=== PATIENT | female | born 1975 | race Caucasian/White ===

== ENCOUNTER 2018-04-11 06:22 | Day surgery (SDC) | payer OTHER ==
--- NOTE | 2018-04-02 15:40 | HP ---
PREOPERATIVE HISTORY AND PHYSICAL: DATE OF SURGERY/ADMISSION: 04/11/18 [facility] DATE OF OFFICE VISIT/ENCOUNTER: 04/02/18 ATTENDING SURGEON: Lamar Guthrie MD.* (DICTATED BY AYANA RODRIGUEZ) PROCEDURE: Left wrist excision of mass. CHIEF COMPLAINT: Mass, left wrist. HISTORY OF PRESENT ILLNESS: This is a 42-year-old female. 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. She has had pain and lump in her left wrist that has been ongoing for close to 2 months. She denies any injury to the wrist. She feels marked pain on the volar ulnar aspect of the wrist especially when she applied pressure or when she extends her wrist. Even regulatory services consultant activity such as holding a book is very painful. This is her dominant hand. She occasionally gets a tingling sensation into her ulnar to fingers, but that is not present all the time. An MRI of the left wrist shows a ganglion cyst at the volar radial aspect; however, this is not in area of her pain and she does definitely have a tender mass at the ulnar aspect of the wrist , which is likely tenosynovitis compressing the ulnar nerve. The patient is interested in having the mass removed and has consented to proceed with surgical intervention at this time. PAST MEDICAL HISTORY: Unremarkable. PAST SURGICAL HISTORY: 1. Left shoulder rotator cuff repair. 2. Right knee arthroscopy. CURRENT MEDICATIONS: None. ALLERGIES: No known drug allergies. FAMILY MEDICAL HISTORY: Hypertension and cancer. SOCIAL HISTORY: The patient is employed at [employer] as a clinical genetics laboratory chief. She is also going to school in [place]. She denies tobacco use and recreational drug use. She does drink alcohol on regular occasion. REVIEW OF SYSTEMS: General: Negative for fevers, chills, or night sweats. No known anesthesia problems. Negative for unexplained weight loss or gain. HEENT : Negative for headache, lightheadedness, syncopal episodes, or visual changes. Integumentary: Negative for abrasions, lesions, or open wounds. Cardiothoracic : Negative for hypertension, chest pain, palpitations, or edema. Respiratory: Negative for shortness of breath with exertion, chronic cough, or wheezing. GI : Negative for nausea, vomiting, diarrhea, constipation, or GERD. : Negative for nocturia, urinary frequency, urgency, history of UTIs, or kidney problems. Musculoskeletal: Positive for current complaint. Neurologic: Negative for paresthesias, numbness, history of seizure, stroke, or poor balance. Endocrine: Negative for diabetes or thyroid issues. Hematologic: Negative for easy bruising, anemia, bleeding disorders, or history of DVT. Infectious Disease: Negative for history of MRSA, hepatitis C, or HIV. PHYSICAL EXAMINATION GENERAL: Well-developed, well-nourished 42-year-old female in no acute distress. VITAL SIGNS: Height is 5 feet 7 inches, weight 302 pounds. Blood pressure 130/ 72, pulse rate 95. HEENT: Normocephalic, atraumatic. Pupils are equal, round, and reactive to light and accommodation. Extraocular movements are intact. Throat is clear. NECK: Supple. No palpable lymph nodes. PULMONARY: Lungs are clear to auscultation bilaterally. No wheezes, rales, or rhonchi. CARDIOVASCULAR: Regular rate and rhythm. S1 and S2. No murmurs, rubs, or gallops. No edema. ABDOMEN: Positive bowel sounds, soft, nontender. NEUROLOGIC: Alert and oriented x3. Cranial nerves II through XII are intact. Sensation is intact to light touch. MUSCULOSKELETAL: On exam of her left wrist, there is some mild swelling on the volar ulnar aspect of the wrist. It is markedly tender to palpation just ulnar to the flexor carpi ulnaris. She has a positive Tinel's sign. She has no pain resisting wrist flexion, but significant pain with passive wrist extension especially when bearing weight in that position. She has full motion on her fingers and neurovascular function is intact. IMAGING STUDIES: X-rays AP, lateral, and oblique of the left wrist appear normal. MRI of the left wrist shows a volar radial wrist ganglion. IMPRESSION: Left wrist volar radial ganglion, likely tenosynovitis at the volar ulnar aspect. PLAN: The patient is scheduled to undergo a left wrist excision mass with Dr. Guthrie on 04/11/18. She will return to the office in 10 days postop for followup and suture removal. Prescription for Ultracet was e-scribed to the patient's pharmacy for postoperative pain management. AYANA RODRIGUEZ [id number]/[facility] #: [id number] VALENTIN
[~2018-04-11 06:22] MED LIST: Buffered Lidocaine 0.9% SYRIN* 5 ML/SYR SYRINGE INTRADERM ONE; Sodium Citrate/Citric Acid* 15 ML UDC PO ONE
[2018-04-11] MEDS ORDERED: Sodium Citrate/Citric Acid* 15 ML UDC ONE (06:59)
[2018-04-11] MEDS ORDERED: Buffered Lidocaine 0.9% SYRIN* 5 ML/SYR SYRINGE ONE (06:59)
[2018-04-11] MEDS ORDERED: Lidocaine 1% INJ* 10 MG/ML 30 ML SDV ONE (07:08)
[2018-04-11] MEDS ORDERED: Midazolam* 1 MG/ML 2 ML VIAL (2 MG) ONE (07:26)
[2018-04-11] MEDS ORDERED: fentaNYL* 50 MCG/ML 2 ML VIAL (100 MCG VIAL) ONE (07:26)
[2018-04-11] MEDS ORDERED: Lidocaine 2% PF * 5 ML VIAL ONE (07:39)
[2018-04-11] MEDS ORDERED: Propofol* 10 MG/ML 20 ML BTL IV PUSH ONE (07:45)
[2018-04-11] MEDS ORDERED: Naloxone* 0.4 MG/ML 1 ML VIAL IV PRN (08:18)
[2018-04-11 08:37] VITALS: BP 124/84
--- NOTE | 2018-04-12 00:36 | OP ---
DATE OF OPERATION: 04/11/18 - [facility] DATE OF : 71 SURGEON: Dr. Guthrie. ANESTHESIOLOGIST: AYANA Peterson ANESTHESIA: Local MAC. PRE-OP DIAGNOSIS: Left wrist mass. POST-OP DIAGNOSIS: Left wrist mass. OPERATIVE PROCEDURE: Removal of left wrist mass. ESTIMATED BLOOD LOSS: Zero. TOURNIQUET TIME: About 25 minutes. INDICATIONS FOR PROCEDURE: Dixie is a 42-year-old female with a painful mass on the ulnar aspect of her left wrist. She has symptoms of ulnar neuropathy as a result of it. She presents for left wrist mass excision. DESCRIPTION OF PROCEDURE: The patient was brought to the operating room, was given a sedation anesthetic and local infiltration of a total of 14 cc of 1% plain lidocaine and 5 cc of 2% plain lidocaine. Skin of her left upper extremity was prepped and draped in usual sterile fashion. The hand and forearm were exsanguinated and the tourniquet elevated to 250 mmHg. A Chevron incision was made centered over the mass, we dissected bluntly through the subcutaneous tissue. There appeared to be a lipoma superficial to the FCU tendon and this was removed. The FCU tendon was dissected out as were the ulnar nerve and ulnar artery. Deep to the ulnar nerve, there was some tenosynovitis of the flexor tendons and this was debrided. The nerve was intact. There was no mass in the nerve itself. The artery did not have an aneurysm. The nerve was completely decompressed and then the wound irrigated. Skin edges were reapproximated with 4-0 nylon suture. The wound was dressed with Xeroform, 4x4, Webril and an Mike wrap. The patient tolerated the procedure well and was brought to the recovery room in good condition. [id number]/[facility] #: [id number] MTDD
== END 2018-04-11 08:50 | disposition home or self-care (01) ==
LOC: OR 06:22
PROVIDERS: ATTEND Orthopaedic Surgery
DX: D17.79 Benign lipomatous neoplasm of other sites (principal)
CPT/HCPCS: 81025; 88304; A9270-GY; J2250; J2704; J3010

== ENCOUNTER 2019-08-25 10:49 | Inpatient (IN) | payer OTHER ==
[~2019-08-25 10:49] MED LIST changes: -Buffered Lidocaine 0.9% SYRIN* 5 ML/SYR SYRINGE INTRADERM ONE; +Buffered Lidocaine 1% SYRIN* 1 ML/SYRINGE INTRADERM ONE; +Famotidine IV* 10 MG/ML 2 ML (20 mg) IV ONE; +Lactated Ringers 1000 ML Bag* 1,000 ML IV SCH; -Sodium Citrate/Citric Acid* 15 ML UDC PO ONE
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
[2019-08-25] MEDS ORDERED: Ondansetron INJ* 2 MG/ML VIAL ONE ×2 (11:02→14:36)
[2019-08-25] MEDS ORDERED: Lidocaine 2% PF * 5 ML VIAL ONE (11:02)
[2019-08-25] MEDS ORDERED: Propofol* 10 MG/ML 20 ML BTL ONE (11:02)
[2019-08-25] MEDS ORDERED: fentaNYL* 50 MCG/ML 2 ML VIAL (100 MCG VIAL) ONE ×3 (11:02→14:46)
[2019-08-25] MEDS ORDERED: Dexamethasone IV* 4 MG/ML 1 ML (4 MG) ONE (11:02)
[2019-08-25] MEDS ORDERED: Rocuronium* 10 MG/ML VIAL ONE (11:03)
[2019-08-25] MEDS ORDERED: KETAMINE HCL* 50 MG/ML 10 ML VIAL ONE (11:03)
[2019-08-25] MEDS ORDERED: Midazolam* 1 MG/ML 5 ML VIAL (5 MG) ONE (11:03)
[2019-08-25] MEDS ORDERED: ceFAZolin 2 GM in NS PREMIX(*) 2 GM/100 ML BAG IVPB ONE (11:14)
[2019-08-25] MEDS ORDERED: ceFAZolin 1 GM ADVAN(*) 1 GM ADDV.VIAL IVPB ONE (11:14)
[2019-08-25] MEDS ORDERED: Heparin VIAL(*) 5000 UNITS/ML VIAL (FIVE THOUSAND) ONE (11:14)
[2019-08-25] MEDS ORDERED: Famotidine IV* 10 MG/ML 2 ML (20 mg) ONE (11:14)
[2019-08-25] MEDS ORDERED: Bupivacaine 0.25% EPI 200,000* 30 ML SDV ONE (12:06)
[2019-08-25] MEDS ORDERED: Ondansetron INJ* 2 MG/ML VIAL IV PRN (13:13)
[2019-08-25] MEDS ORDERED: Naloxone* 0.4 MG/ML 1 ML VIAL IV PRN (13:13)
[2019-08-25] MEDS ORDERED: Glycopyrrolate IV* 0.2 MG/ML 1 ML VIAL ONE (13:48)
[2019-08-25] MEDS ORDERED: diPHENhydraMINE IV* 50 MG/ML 1 ml VIAL (BENADRYL) SLOW PUSH PRN (14:19)
[2019-08-25] MEDS ORDERED: HYDROmorphone INJ1* 1 MG/ML SYRINGE IV SLOW PU PRN (14:24)
[2019-08-25] MEDS ORDERED: HYDROmorphone INJ* 0.5 MG/0.5 ML SYRINGE IV SLOW PU PRN (14:27)
[2019-08-25] MEDS ORDERED: HYDROmorphone INJ1* 1 MG/ML SYRINGE ONE (14:27)
[2019-08-25] MEDS: HYDROmorphone INJ1* 1 MG/ML SYRINGE IV PRN ×2 (14:28→14:41)
[2019-08-25] MEDS: fentaNYL* 50 MCG/ML 2 ML VIAL (100 MCG VIAL) IV PRN ×2 (14:46→15:19)
[2019-08-25] MEDS ORDERED: Ketorolac INJ* 30 MG/ML 1 ML VIAL IV SCH (15:00)
[2019-08-25] MEDS: Lactated Ringers 1000 ML Bag* 1,000 ML IV SCH ×2 (16:18→22:51)
[2019-08-25] MEDS: Famotidine IV* 10 MG/ML 2 ML (20 mg) IV SLOW PU SCH (20:32)
[2019-08-25] MEDS: Ketorolac INJ* 30 MG/ML 1 ML VIAL IV SCH (20:32)
[2019-08-25] MEDS: Ondansetron INJ* 2 MG/ML VIAL IV PRN (20:56)
--- NOTE | 2019-08-25 21:49 | OP ---
CC: [facility]; Dr. Bob Chaparro, [facility] * DATE OF OPERATION: 08/25/19 - ROOM #353 DATE OF : 71 SURGEON: Stas Lopez MD. DISTRICT SALES LEADER: Yany Johnson NP. ANESTHESIOLOGIST: Dr. Federico Chance. ANESTHESIA: General endotracheal. PRE-OP DIAGNOSES: Clinically severe obesity. POST-OP DIAGNOSES: Clinically severe obesity. OPERATIVE PROCEDURE: Laparoscopic sleeve gastrectomy. ESTIMATED BLOOD LOSS: Less than 10 mL. IV FLUIDS: Crystalloid. SPECIMEN: Portion of stomach. DRAINS: None. COMPLICATIONS: None. COUNTS: The instrument, needle, and sponge counts were correct. DESCRIPTION OF PROCEDURE: The patient was brought to the operative room and placed on the table supine. Sequential compression devices were placed on both lower extremities and general anesthesia was administered. The abdomen was prepped and draped in the usual sterile fashion. Time-out was performed. Local anesthetic was infiltrated into the skin and soft tissue prior to making each incision. Entry into the abdomen was through a left upper quadrant incision accommodating a 5-mm optical trocar. After accessing the peritoneal cavity, carbon dioxide was insufflated to a pressure of 15 mmHg. Under direct visualization, 12-mm bladeless trocars were placed in the right upper quadrant and supraumbilical midline. 5-mm trocars were placed in the left upper quadrant laterally. A Joyce liver retractor was placed percutaneously in the subxiphoid position and used to elevate the left lobe of the liver. Gastric anatomy was inspected and appeared to be normal. There were some adhesions of the omentum to the falciform ligament that were taken down. Pylorus was identified, and 6 cm proximal to this on the greater curvature, the stomach was skeletonized with the LigaSure. Division of the short gastrics was completed all the way to the gastroesophageal junction. A posterior short gastric vessel was divided as well. Once the stomach was fully mobilized, a sleeve gastrectomy was performed over a 40 Fijian bougie with serial firings of the EndoGIA stapler with purple cartridges with reinforcement. After completing the sleeve gastrectomy, the specimen was retrieved through the right upper quadrant incision using the endoscopic retrieval bag. The Joyce liver retractor was removed. The ports and carbon dioxide were removed. The incisions were closed with 4-0 Monocryl in subcuticular fashion. Steri-Strips were applied. The patient tolerated the procedure well. She was extubated and transferred to Recovery in stable condition. [id number]/[facility] #: [id number] [facility] HEALTHMarianne
[2019-08-25] MEDS: Heparin VIAL(*) 5000 UNITS/ML VIAL (FIVE THOUSAND) SUBCUT SCH (22:49)
[2019-08-26] MEDS: Ketorolac INJ* 30 MG/ML 1 ML VIAL IV SCH ×4 (03:01→20:30)
[2019-08-26] MEDS: Heparin VIAL(*) 5000 UNITS/ML VIAL (FIVE THOUSAND) SUBCUT SCH ×3 (05:36→22:05)
[2019-08-26] MEDS: Lactated Ringers 1000 ML Bag* 1,000 ML IV SCH ×2 (05:36→14:19)
[2019-08-26] MEDS: Ondansetron INJ* 2 MG/ML VIAL IV PRN ×3 (07:48→20:29)
[2019-08-26] MEDS: Famotidine IV* 10 MG/ML 2 ML (20 mg) IV SLOW PU SCH ×2 (08:30→20:27)
[2019-08-26] MEDS ORDERED: Influenza VAC *QUAD* 2019-20* 0.5 ML SYRINGE IM ONE (09:00)
--- NOTE | 2019-08-26 09:29 | PN ---
Progress Note - Progress Note Date of Service: 08/26/19 SOAP: Subjective: Pt Comfortable in bed, C/O Nausea and Vomiting earlier this morning x 2, responded well to Zofran without complaints at time of my exam. + Flatus + Voids[] Objective: Vital Signs Temp Pulse Resp BP Pulse Ox 98.3 F 95 14 143/87 100 08/26/19 08:00 08/26/19 08:00 08/26/19 08:00 08/26/19 08:00 08/26/19 08:00 PE: Chest: CTA B/L CVS: RRR ABD: Obese, Soft, hypoactive BS's Incisions C/D/I + incisional Tenderness Remaining abdominal exam non tender EXT: Calves soft B/L [] Assessment: 43 yo obese female S/P laparoscopic sleeve gastrectomy, post operative nausea/vomiting responds well to zofran [] Plan: Begin Bariatric clear diet, Insentive spirometry, encouraged deep breathing. ambulate Above D/W Dr Lopez []
[2019-08-26] MEDS ORDERED: Scopolamine 1.5 mg* PATCH TRANSDERM SCH (15:00)
[2019-08-26] MEDS: D5W 1/2 NS KCl 20 Meq 1000 ML* 1,000 ML IV SCH (17:21)
[2019-08-27] MEDS: D5W 1/2 NS KCl 20 Meq 1000 ML* 1,000 ML IV SCH ×2 (02:28→10:25)
[2019-08-27] MEDS: Ketorolac INJ* 30 MG/ML 1 ML VIAL IV SCH ×2 (02:28→08:32)
[2019-08-27] MEDS: Ondansetron INJ* 2 MG/ML VIAL IV PRN (02:34)
[2019-08-27] MEDS: Heparin VIAL(*) 5000 UNITS/ML VIAL (FIVE THOUSAND) SUBCUT SCH (05:55)
[2019-08-27] MEDS: Famotidine IV* 10 MG/ML 2 ML (20 mg) IV SLOW PU SCH (08:32)
[2019-08-27] MEDS ORDERED: Influenza VAC *QUAD* 2019-20* 0.5 ML SYRINGE IM ONE (09:00)
[2019-08-27 11:35] VITALS: BP 113/49
--- NOTE | 2019-08-27 12:15 | PN ---
Progress Note - Progress Note Date of Service: 08/27/19 SOAP: Subjective: Pt in NAD, feeling better. Tolerated elizabeth clears, + Flatus, no nausea[] Objective: Vital Signs Temp Pulse Resp BP Pulse Ox 97.8 F 78 18 113/49 99 08/27/19 11:34 08/27/19 11:34 08/27/19 11:34 08/27/19 11:34 08/27/19 11:34 Intake & Output 08/26/19 08/27/19 08/27/19 22:59 06:59 14:59 Intake Total 064 368 1211 Output Total 1500 800 400 Balance -1045 195 610 PEX: Chest: CTA B/L CVS: RRR ABD: Obese, Soft, Hypoactive BS's, incisions C/D/I steris in place EXT: Calves soft B/L, non tender[] Assessment: 43 yo female POD 2 S/P lap sleeve stable. Bowel function returning, tolerating elizabeth clears[] Plan: Continue ambulating, IS, SCD's, Elizabeth clear diet. If tolerates lunch, will D/C home this afternoon []
--- NOTE | 2019-08-27 21:30 | DS ---
DISCHARGE SUMMARY: DATE OF ADMISSION: 08/25/19 DATE OF DISCHARGE: 08/27/19 SURGEON: Dr. Stas Lopez.* (DICTATED BY AYANA GIL) DISCHARGE DIAGNOSIS: Morbid obesity. REASON FOR ADMISSION: Morbid obesity. HOSPITAL COURSE: The patient admitted on 08/25/19 for a laparoscopic sleeve gastrectomy. The patient tolerated the procedure well, transferred to the short - stay surgical unit for postoperative medical care. The patient was experiencing nausea on postop day 1 and was kept due to this. On postop day 2, 08/27/19, the patient has been tolerating bariatric clear liquid diet with no problem, had been given a scolamine patch. PHYSICAL EXAMINATION: The wounds were clean, dry, and intact. Chest was clear. The abdomen was soft with only some incisional tenderness. She is passing flatus. DISPOSITION: The patient was being discharged to home in stable condition on . DISCHARGE INSTRUCTIONS: Instructions were given regarding diet, medications, activity, and her followup appointment. All questions were answered. AYANA GIL [id number]/[facility] #: [id number] MTDD
[2019-08-29] MEDS ORDERED: Scopolamine PATCH Remove* 1 NOTE MISC PATCH OFF SCH (15:00)
== END 2019-08-27 13:45 | disposition home or self-care (01) | DRG 403 ==
LOC: AA 10:49 → SSU 16:05
PROVIDERS: ADMIT Surgery; ATTEND Surgery
PROC: 0DB64Z3 Excision of Stomach, Percutaneous Endoscopic Approach, Vertical (ICD-10-PCS; principal; 2019-08-25 12:15)
DX: E66.01 Morbid (severe) obesity due to excess calories (principal); K21.9 Gastro-esophageal reflux disease without esophagitis; G89.29 Other chronic pain; M54.2 Cervicalgia; R11.2 Nausea with vomiting, unspecified; F32.9 Major depressive disorder, single episode, unspecified; G43.909 Migraine, unspecified, not intractable, without status migrainosus; Z80.9 Family history of malignant neoplasm, unspecified; Z68.43 Body mass index [BMI] 50.0-59.9, adult; Z82.61 Family history of arthritis; Z82.62 Family history of osteoporosis; Z82.49 Family history of ischemic heart disease and other diseases of the circulatory system; Z72.89 Other problems related to lifestyle; Z23 Encounter for immunization
CPT/HCPCS: 43775; 81025; 88307; 90686; A9270-GY; J0690; J1100; J1170; J1644; J1885; J2250; J2405; J2704; J3010

== ENCOUNTER 2019-08-31 13:12 | Emergency (ER) | payer OTHER ==
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
[2019-08-31 14:35] LABS: ABS Basophils 0.1 10^3/ul (0-0.2); ABS Eosinophils 0.1 10^3/ul (0-0.6); ABS Lymphocytes 2.6 10^3/ul (1.0-4.8); ABS Monocytes 0.7 10^3/ul (0-0.8); ABS Neutrophils 5.7 10^3/ul (1.5-7.7); Eosinophil % 1.2 %; Hematocrit 37 % (35-47); Hemoglobin 12.3 g/dL (12.0-16.0); Lymphocyte % 28.4 %; Mean Corpuscular HGB Conc 33 g/dL (31-36); Mean Corpuscular Hemoglobin 28 pg (27-31); Mean Corpuscular Volume 85 fL (80-97); Mean Platelet Volume 8.3 fL (7.4-10.4); Nucleated Red Blood Cells % 0.1; Platelet Count 268 10^3/uL (150-450); Red Cell Distribution Width 14 % (10-15); White Blood Count 9.2 10^3/uL (3.5-10.8)
[2019-08-31 14:48] LABS: INR 1.14 (0.82-1.09)
[2019-08-31 14:53] LABS: Albumin/Globulin Ratio 1.1 (1-3); BUN/Creatinine Ratio 9.3 (8-20); C Reactive Protein 49.71 mg/L (<8.01); Calcium 9.4 mg/dL (8.6-10.3); EGFR African American 86.3 (>60); EGFR Non-African American 71.4 (>60); Globulin 3.8 g/dL (2-4); Potassium 3.5 mmol/L (3.5-5.0); Total Bilirubin 0.7 mg/dL (0.2-1.0); Total Protein 7.8 g/dL (6.4-8.9)
[2019-08-31 14:54] LABS: Troponin I 0.01 ng/mL (<0.04)
[2019-08-31] MEDS ORDERED: Iohexol 350* (CONTRAST) 500 ML MDV IV ONE (16:32)
[2019-08-31 18:44] VITALS: BP 122/75
== END 2019-08-31 18:53 | disposition home or self-care (01) ==
LOC: ED 13:12
DX: R14.0 Abdominal distension (gaseous) (principal); F41.9 Anxiety disorder, unspecified; F32.9 Major depressive disorder, single episode, unspecified; Z79.899 Other long term (current) drug therapy
CPT/HCPCS: 36415; 71046; 71275; 74176; 80053; 83605; 83880; 84484; 85025; 85610; 86140; 87040; 93005; 99283; Q9967

== ENCOUNTER 2019-09-11 15:42 | Observation (INO) | payer OTHER ==
[2019-09-11] MEDS ORDERED: Thiamine IV 100 MG, Folic Acid IV* 1 MG, Multiple Vitamin IV ADULT* 10 ML in D5NS 0.9% ... IV ONE (17:58)
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
[2019-09-11 18:40] LABS: ABS Basophils 0.1 10^3/ul (0-0.2); ABS Eosinophils 0.1 10^3/ul (0-0.6); ABS Lymphocytes 2.9 10^3/ul (1.0-4.8); ABS Monocytes 0.7 10^3/ul (0-0.8); ABS Neutrophils 5.6 10^3/ul (1.5-7.7); Eosinophil % 0.8 %; Hematocrit 39 % (35-47); Hemoglobin 12.8 g/dL (12.0-16.0); Lymphocyte % 30.7 %; Mean Corpuscular HGB Conc 33 g/dL (31-36); Mean Corpuscular Hemoglobin 28 pg (27-31); Mean Corpuscular Volume 85 fL (80-97); Mean Platelet Volume 8.2 fL (7.4-10.4); Nucleated Red Blood Cells % 0.2; Platelet Count 390 10^3/uL (150-450); Red Blood Count 4.57 10^6 /uL (3.70-4.87); Red Cell Distribution Width 14 % (10-15); White Blood Count 9.3 10^3/uL (3.5-10.8)
[2019-09-11 18:42] LABS: BUN/Creatinine Ratio 7.5 (8-20); Calcium 9.7 mg/dL (8.6-10.3); EGFR African American 78.9 (>60); EGFR Non-African American 65.2 (>60); Potassium 3.2 mmol/L (3.5-5.0)
[2019-09-11] MEDS ORDERED: Pantoprazole IV* 40 MG IV SCH (19:00)
[2019-09-11] MEDS ORDERED: Ondansetron INJ* 2 MG/ML VIAL IV PRN (20:25)
--- NOTE | 2019-09-11 20:59 | HP ---
CC: , [facility]; , [facility] * HISTORY AND PHYSICAL UPDATE: DATE OF ADMISSION: 09/11/19 ATTENDING SURGEON: Dr. Garrett Fuller.* (DICTATED BY AYANA SANZ) CHIEF COMPLAINT: Severe reflux. HISTORY OF PRESENT ILLNESS: This is a 43-year-old female who is 2 weeks and 3 days status post laparoscopic sleeve gastrectomy with Dr. Lopez. Her initial postoperative course was significant for nausea such that she stayed until postop day 2, after which time she was tolerating bariatric clear liquids well. She also had an ED visit on 08/31/19 for some shortness of breath. Her workup at that time was negative and she was released. She was seen by Dr. Lopez on 09/03/19 and had continued to do well with her bariatric liquid diet. However, last night in the middle of the night, she noted severe burning in her upper chest and back of her throat and thereafter intolerance of fluids including water. She admits to nausea, but denies vomiting. She has been able to handle her own secretions and has not had any further vomiting or regurgitation. She has no prior history of reflux nor any regular use of antacids. She was seen at the [facility] and was seen by the nurse practitioner, Ana Walters, who communicated her findings to Dr. Lopez. Recommendation was made for the patient to come into the ED and receive IV fluids and obtain an upper GI study. Because of the timing, her case was discussed with Dr. Fuller and his recommendation was that she be admitted overnight for IV fluids, PPI and upper GI study in the morning with anticipated discharge thereafter on oral PPI. PAST MEDICAL HISTORY: The remainder of her past medical history is as per her preoperative history and physical. CURRENT MEDICATIONS: Multivitamin only. No prescription medications. DRUG ALLERGIES: None. PHYSICAL EXAMINATION GENERAL: Well-nourished, obese, woman, in no acute distress, sitting up in chair. VITAL SIGNS: Temperature 98.4, blood pressure 114/76, pulse 85, respirations 17 , room air saturation 100%. HEENT: Mucous membranes moist. LUNGS: Clear to auscultation. No rales or wheezes. HEART: Regular rate and rhythm. ABDOMEN: Soft. Very minimal tenderness to palpation in the mid epigastric region. SKIN: Warm and dry. DIAGNOSTIC STUDIES/LAB DATA: Labs and studies are pending. Case was discussed with Dr. Fuller and the charge nurse in the ED. The patient is agreeable to the plan. AYANA SANZ [id number]/[facility] #: [id number] VALENTIN
[2019-09-11] MEDS: D5NS 0.9% 1000 ML BAG* 1,000 ML IV SCH (23:12)
[2019-09-11] MEDS ORDERED: Acetaminophen TAB* 325 MG PO PRN (23:34)
[2019-09-11] MEDS ORDERED: Ketorolac INJ* 15 MG/ML 1 ML VIAL IV PUSH ONE (23:45)
[2019-09-12] MEDS ORDERED: NS 0.9% 500 ML* 500 ML IV ONE (01:00)
[2019-09-12] MEDS: D5NS 0.9% 1000 ML BAG* 1,000 ML IV SCH ×3 (01:07→16:35)
--- NOTE | 2019-09-12 10:53 | PN ---
Progress Note - Progress Note Date of Service: 09/12/19 SOAP: Subjective: Feels much better- no reflux symptoms but was NPO last night no pain Objective: Temp Pulse Resp BP Pulse Ox 97.8 F 63 16 97/61 100 09/12/19 08:20 09/12/19 08:20 09/12/19 08:20 09/12/19 08:20 09/12/19 08:20 Intake & Output 09/10/19 09/11/19 09/12/19 09/13/19 06:59 06:59 06:59 06:59 Intake Total 1651 996 Output Total 200 Balance 1451 996 Weight 293 lb Intake: IV Fluids 1651 996 D5 NS 166 996 NS bolus 491 banana bag 994 Oral 0 Output: Urine 200 PEX: Comfortable Lungs are clear Abd is soft and non-distended; No tenderness UGI reviewed-no obstruction Assessment: S/P sleeve gastrectomy for morbid obesity GERD Plan: Start clear liquids PPI If ok, d/c later today on PPI with follow up All discussed with patient.
[2019-09-12] MEDS ORDERED: Pantoprazole IV* 40 MG IV SCH (18:30)
[2019-09-12] MEDS ORDERED: NS 0.9% 1000 ML** 1,000 ML IV ONE (19:15)
[2019-09-13] MEDS: D5NS 0.9% 1000 ML BAG* 1,000 ML IV SCH (02:35)
[2019-09-13 07:34] VITALS: BP 100/59
--- NOTE | 2019-09-13 10:02 | PN ---
Progress Note - Progress Note Date of Service: 09/13/19 SOAP: Subjective: Feels much better Taking liquids slowly now, no reflux or nausea Ambulating Objective: Temp Pulse Resp BP Pulse Ox 98.4 F 70 18 100/59 99 09/13/19 07:33 09/13/19 07:33 09/13/19 07:37 09/13/19 07:33 09/13/19 07:33 Intake & Output 09/11/19 09/12/19 09/13/19 09/14/19 06:59 06:59 06:59 06:59 Intake Total 1651 4929 897 Output Total 200 400 0 Balance 1451 4529 897 Weight 293 lb Intake: IV Fluids 1651 3839 897 D5 NS 166 2839 897 NS bolus 491 1000 banana bag 994 Oral 0 1090 Output: Urine 200 400 0 PEX: Comfortable Lungs are clear Abd is soft and non-distended. Incisions CDI Assessment: S/P lap sleeve gastrectomy Refl;ux/nausea--resolved on PPI--taking liquids slowly UGI reviewed Plan: Clear liquids D/C home today Oral PPI Instructions given Outpatient follow up at [facility]
--- NOTE | 2019-09-13 14:35 | DS ---
CC: [facility], Bariatric Surgery, Attn. Dr. Lopez * DISCHARGE SUMMARY: DATE OF ADMISSION: 09/11/19 DATE OF DISCHARGE: 09/13/19 PRINCIPAL DIAGNOSIS: Nausea with reflux, status post sleeve gastrectomy. PROCEDURE PERFORMED: None. DIAGNOSTIC STUDIES: Upper GI showing no evidence of staple line leak or anatomic obstruction, slow clearing of the esophagus was noted. CONDITION ON DISCHARGE: Good. DISPOSITION: To home. MEDICINES: 1. Omeprazole 20 mg p.o. b.i.d. 2. Citalopram 10 mg daily. 3. Magnesium carbonate 355 mg 1 p.o. t.i.d. 4. Multivitamins one daily. 5. Zofran 4 mg ODT tablets. FOLLOWUP INSTRUCTIONS: Follow up with [facility] for her usual routine bariatric followup. Diet, she was on a bariatric liquid diet. HISTORY OF PRESENT ILLNESS: Ms. Dixie Dawson is a 43-year-old morbidly obese woman who underwent a laparoscopic sleeve gastrectomy with Dr. Lopez in early August. She has been doing well till the last several days. She developed some reflux type symptoms with difficulty swallowing and nausea. She was seen in the [facility] office and was started on oral omeprazole, but still had poor oral pleural intake and was evaluated in the emergency room where she was felt to be dehydrated. Laboratory workup was otherwise unremarkable. HOSPITAL COURSE: Due to poor oral intake over the past 24 hours, she was admitted and rehydrated and started on oral proton-pump inhibitors. She has not been on a PPI prior to admission, although this has been just started but a prescription had been given earlier in the day for oral administration. She has not had problem with reflux preoperatively. On hospital day #1 she underwent an upper GI which showed some decreased esophageal clearing with some tertiary wave forms, but no evidence of obstruction or leak. Over the next 24 hours, she slowly advanced her clear liquid diet where she was taking small steps and tolerating this well without further nausea or reflux symptoms. She was felt ready for discharge and she would continue now with her outpatient omeprazole therapy with the followup as described above. [id number]/[facility] #: [id number] E.J. NOBLE HOSPITALMarianne
== END 2019-09-13 12:00 | disposition home or self-care (01) ==
LOC: ED 15:42 → INTOOBSV 17:40 → SSU 17:40
PROVIDERS: ADMIT Surgery; ATTEND Surgery
DX: K21.9 Gastro-esophageal reflux disease without esophagitis (principal); Z98.84 Bariatric surgery status; R11.0 Nausea; Z79.899 Other long term (current) drug therapy
CPT/HCPCS: 36415; 74246; 80048; 85025; 96374; 96375; 96376; 99283; G0378; J1885; J2405; J3411

== ENCOUNTER 2019-09-20 22:20 | Emergency (ER) | payer OTHER ==
[2019-09-20] MEDS ORDERED: NS 0.9% 1000 ML** 1,000 ML IV ONE (22:37)
[2019-09-20] MEDS ORDERED: Morphine 4 MG/ML VIAL (1 ml) 4 MG/ML VIAL IV ONE (22:37)
[2019-09-20] MEDS ORDERED: Ondansetron INJ* 2 MG/ML VIAL IV ONE (22:37)
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
[2019-09-20 23:06] LABS: ABS Basophils 0.1 10^3/ul (0-0.2); ABS Eosinophils 0.1 10^3/ul (0-0.6); ABS Lymphocytes 2.3 10^3/ul (1.0-4.8); ABS Monocytes 0.7 10^3/ul (0-0.8); ABS Neutrophils 7.3 10^3/ul (1.5-7.7); Eosinophil % 0.7 %; Hematocrit 36 % (35-47); Hemoglobin 11.7 g/dL (12.0-16.0); Lymphocyte % 22.3 %; Mean Corpuscular HGB Conc 32 g/dL (31-36); Mean Corpuscular Hemoglobin 28 pg (27-31); Mean Corpuscular Volume 85 fL (80-97); Mean Platelet Volume 8.1 fL (7.4-10.4); Platelet Count 287 10^3/uL (150-450); Red Blood Count 4.26 10^6 /uL (3.70-4.87); Red Cell Distribution Width 15 % (10-15); White Blood Count 10.5 10^3/uL (3.5-10.8)
[2019-09-20 23:33] LABS: ALT 23 U/L (7-52); AST 23 U/L (13-39); Albumin 3.9 g/dL (3.2-5.2); Albumin/Globulin Ratio 1.3 (1-3); Alkaline Phosphatase 82 U/L (34-104); Anion Gap 7 mmol/L (2-11); BUN/Creatinine Ratio 10.8 (8-20); Blood Urea Nitrogen 8 mg/dL (6-24); CO2 Carbon Dioxide 25 mmol/L (22-32); Calcium 8.8 mg/dL (8.6-10.3); Chloride 106 mmol/L (101-111); EGFR African American 102.7 (>60); EGFR Non-African American 84.9 (>60); Globulin 3.1 g/dL (2-4); Glucose 120 mg/dL (70-100); Potassium 3.3 mmol/L (3.5-5.0); Sodium 138 mmol/L (135-145)
[2019-09-20 23:40] LABS: HCG Pregnancy < 0.60 mIU/mL
[2019-09-21 00:33] VITALS: BP 106/79
== END 2019-09-21 00:33 | disposition home or self-care (01) ==
LOC: ED 22:20
DX: R10.9 Unspecified abdominal pain (principal); R11.10 Vomiting, unspecified; Z98.84 Bariatric surgery status
CPT/HCPCS: 36415; 80053; 83690; 84702; 85025; 96361; 96374; 96375; 99282; J2270; J2405